=== PATIENT | female | born 1940 | race Caucasian/White ===

== ENCOUNTER 2021-12-20 13:37 | Day surgery (SDC) | payer MEDICARE, OTHER, SELFPAY ==
[2021-12-20] MEDS: TETRACAINE 0.5% OPHTH 1 DROP EYE-LEFT (12:28)
[2021-12-20] MEDS: TETRACAINE 0.5% OPHTH 1 DROP EYE-RIGHT (12:28)
[2021-12-20] MEDS: LACTATED RINGERS 1000 ML 1,000 ML 100 ML IV (12:30)
[2021-12-20 13:46] VITALS: BMI 24.8
[2021-12-20 14:06] VITALS: BP 161/74; PULSE 55; RESP 18; TEMP 36.5; O2SAT 98
[2021-12-20] MEDS: TETRACAINE 0.5% OPHTH 2 DROP EYE-BOTH (14:51)
[2021-12-20] MEDS: BUPIVACAINE 0.5 %/EPI 1:200K 30 ML INJECTION (14:53)
--- NOTE | 2021-12-20 14:53 | SUR.PREOP ---
Pt needing multiple IV starts 2 per RN and 2 per ORDER ADMINISTRATOR iv started and infusing well to right top hand
--- NOTE | 2021-12-20 15:57 | W.PM.OPTPROC ---
Procedure Note Date of procedure: 12/20/21 Will [facility] bill your pro fee for this procedure?: Yes Procedure Description: SURGEON: Gina Isidro MD PREOPERATIVE DIAGNOSIS: Dermatochalasis, bilateral upper eyelids. POSTOPERATIVE DIAGNOSIS: Dermatochalasis, bilateral upper eyelids. NAME OF OPERATION: Bilateral upper eyelid blepharoplasty. ANESTHESIA: Local monitored anesthesia care. ESTIMATED BLOOD LOSS: Less than 2 cc. COMPLICATIONS: None. IMPLANTS: None. INDICATIONS: The patient is seen today for bilateral upper eyelid blepharoplasty. The patient complains of upper eyelids interfering with vision. I reviewed the visual oates and facial photographs. Surgery was indicated for functional improvement of vision. The risks, benefits and alternatives were discussed pre-operatively. The risks included pain, infection, bleeding, poor cosmetic result, scarring, asymmetry, need for further treatment including surgery, inability to close lids, dry eyes, decreased vision, loss of vision and loss of eye. The benefits included improvement of symptoms. The alternative was observation and no surgery. All questions were answered to the patient's satisfaction, and the patient elected to proceed with the bilateral upper eyelid blepharoplasty. Informed consent was obtained. PROCEDURE: In a sitting position, the upper eyelid crease was marked with a marking pen, and the pinch technique was used to determine the amount of upper eyelid skin to be excised. A calipers was used to measure for symmetry and to confirm an appropriate amount of remaining skin. The patient was taken to the operating room. 4 cc of anesthetic was injected subcutaneously along the full extent of each upper eyelid. This anesthetic was made with 1:1 of 2% lidocaine with epinephrine and 0.5% bupivacaine. Both eyes were prepped and draped in the usual sterile ophthalmic fashion. The following was performed on both the right and left upper eyelid: A #15 blade was used to incise the skin. Bishops and Kiya scissors were used to excise the skin and orbicularis muscle. Handheld cautery was used to achieve hemostasis. The eyelids were examined for symmetry. The skin was closed with a running 6-0 nylon suture. Erythromycin ointment was applied to the wounds. The patient tolerated the procedure well. DISPOSITION: The patient was sent to the recovery room and discharged to home in stable condition. The patient was given my postoperative instructions handout. The patient was told to ice as directed. The patient will apply erythromycin ophthalmic ointment to the eyelids three times a day until the sutures are removed, then for another three days. The patient will follow up in one week for suture removal or sooner as needed. The patient was instructed to call me or go to the emergency department with any sudden change, including dramatic loss of vision, excessive bleeding, redness or discharge from the incisions, or severe pain in the eye. Surgeon: Gina Isidro MD
--- NOTE | 2021-12-20 15:58 | W.ANESCHARGE ---
Anesthesia Charges Start Date/Time Anesthesia Start Date: 12/20/21 Anesthesia Start Time: 14:52 Stop Date/Time Anesthesia Stop Date: 12/20/21 Anesthesia Stop Time: 16:00 Summary Emergency: No Extremes of Age: Over 70-CPT [id number]
[2021-12-20 16:00] VITALS: BP 139/72; PULSE 53; RESP 20; TEMP 36.3; O2SAT 98
[2021-12-20 16:20] VITALS: BP 130/68; PULSE 52; RESP 20; TEMP 36.3; O2SAT 97
== END 2021-12-20 16:30 | disposition home or self-care (01) ==
PROVIDERS: PCP Internal Medicine; Visit Provider Ophthalmology
PROC: (CPT 15823; principal; 2021-12-20 13:30)
DX: H02.834 Dermatochalasis of left upper eyelid (principal); H02.831 Dermatochalasis of right upper eyelid; H53.9 Unspecified visual disturbance
CPT/HCPCS: 15823; 00103; 99100; A9270; J3490; J7120

== ENCOUNTER 2022-02-27 09:30 | Emergency (ER) | payer MEDICARE, OTHER, SELFPAY ==
[2022-02-27] VITALS (7 sets, daily range): BP systolic 125–150; BP diastolic 59–69; PULSE 81–98; RESP 16–20; TEMP 36.2; O2SAT 89–97; BMI 24.9
--- NOTE | 2022-02-27 10:11 | CRLHL7_ITS ---
For Patients: As a result of the Cures Act, medical imaging exams and procedure reports are released immediately into your electronic medical record. You may view this report before your referring provider. If you have questions, please contact your health care provider. INDICATION: Cough; shortness of breath. COMPARISON: Two-view chest February 19, 2022. TECHNIQUE: Two-view chest. FINDINGS: Infiltrates right middle lobe; relatively new when compared to February 19, 2022. No pneumothorax or pleural effusion. IMPRESSION: Infiltrates right middle lobe. Dictated by Feroz Mo MD @ 02/27/2022 12:04:04 PM (Electronically Signed)
[2022-02-27 10:39] LABS: Basophils Percent Auto 0.1 % (0.0-3.0); Eosinophils Percent Auto 0.4 % (0.0-7.0); Hemoglobin* 14.9 gm/dL (12.0-16.0); Immature Granulocytes Pct Auto 0.3 %; Mean Corpuscular HGB Conc 32 gm/dL (32-36); Mean Corpuscular Hemoglobin 26 pg (26-34); Mean Corpuscular Volume 80 fL (80-100); Monocytes Percent Auto 6.9 % (0.0-11.0); Neutrophils Percent Auto 82.3 % (42.0-72.0); Platelet Count* 212 K/uL (140-440); RDW Coefficient of Variation % 14.5 % (11.5-15.5); Red Blood Count 5.75 m/uL (4.00-5.20); White Blood Count* 11.74 K/uL (4.50-11.00)
[2022-02-27 10:41] LABS: Slide Review Reflex No
[2022-02-27] MEDS: IPRAT-ALBUT 0.5-2.5 MG/3 ML NEB 1 NEB IH (10:41)
[2022-02-27 11:12] LABS: PCR FLU A Negative PCR FLU A (Negative); PCR FLU B Negative PCR FLU B (Negative); PCR RSV Negative PCR RSV (Negative)
[2022-02-27 11:17] LABS: SARS PCR* Negative SARS-CoV-2 (Negative)
[2022-02-27 11:19] LABS: Procalcitonin* 0.12 ng/mL (<0.50)
[2022-02-27 11:24] LABS: NT Pro B Type NatriureticPept* 175 pg/mL; Troponin I* < 0.01 ng/mL (0.01-0.04)
[2022-02-27 11:29] LABS: INR 0.91 (0.91-1.10); Partial Thromboplastin Time* 27 Seconds (23-33); Prothrombin Time 12.8 Seconds
[2022-02-27 11:32] LABS: D Dimer Quantitative* 0.65 ug/ml (0.00-0.50)
[2022-02-27] MEDS: METHYLPREDNISOLONE SOD SUCC 62.5 MG/ML (125) 125 MG IVP (11:39)
[2022-02-27] MEDS: ALBUTEROL SULFATE 2.5 MG/3 ML VIAL.NEB NEB (11:39)
--- NOTE | 2022-02-27 11:52 | ED_ITS ---
HPI - SOB/Dyspnea General Date Seen: 02/27/22 Chief Complaint: Shortness of Breath/Dyspnea Stated Complaint: Shortness of breath, congestion Time Seen by Provider: 02/27/22 09:42 Source: patient Mode of arrival: ambulatory Limitations: no limitations History of Present Illness HPI Narrative: Patient is a 81-year-old female brought in by her of 59 years, for history of cough and shortness of breath, she has been fighting this now for approximately 2 and half weeks, she is not on chronic oxygen. She describes a cough, worse when she lays on her back better when she sits up, she has been using her inhaled steroids along with her meter dose inhaler twice a day. She notes that she has had no fevers or chills, was seen in urgent care approximately a week and half ago, he finished up a course of prednisone on Saturday. [place] better on the prednisone, but her shortness of breath is come back since then. She notes that she is eating and drinking otherwise normally, has no real history of heart disease in the past although at 1 point she was told she may have AFib. Has been taking any other chvv-psq-rrqszet medications. MD elicited complaint: shortness of breath Pertinent past history: COPD and asthma Context: recent illness Timing: constant Severity: moderate Exacerbating factors: lying flat Relieving factors: bronchodilators and upright position Known history of: asthma Associated symptoms: denies other symptoms Treatment prior to arrival: none Related Data Home oxygen amount: none Home Medications Medication Instructions Recorded Confirmed aspirin 81 mg chewable tablet 81 mg PO DAILY 12/19/21 02/19/22 albuterol sulfate 90 mcg/actuation inhalation 12/20/21 02/19/22 aerosol inhaler losartan 50 mg tablet mg 12/20/21 02/19/22 trazodone 50 mg tablet mg 12/20/21 02/19/22 Previous Rx's Medication Instructions Recorded metoprolol tartrate 25 mg tablet 25 mg PO BID #60 tabs 01/10/22 atorvastatin 40 mg tablet 40 mg PO QDAY #30 tabs 01/12/22 omeprazole 20 mg capsule,delayed 20 mg PO QAM #30 caps 02/05/22 release prednisone 20 mg tablet 20 mg PO BID #10 tabs 02/19/22 cefuroxime axetil 500 mg tablet 500 mg PO BID 20 days #40 tabs 02/27/22 Allergies Allergy/AdvReac Type Severity Reaction Status Date / Time house dust Allergy Mild Verified 02/19/22 16:56 Review of Systems Status of ROS: Reports: 10 or more systems reviewed and unremarkable except as noted in History and below [facility] Medical History Cholecystectomy planned Cough Wheeze Family History Father Stroke Social History Smoking Status: Never smoker Do you use any of these nicotine containing products: None How often do you have a drink containing alcohol: monthly or less Alcohol type: wine How many standard drinks containing alcohol do you have on a typical day: 1 or 2 How often do you have six or more drinks on one occasion: Never AUDIT-C Alcohol total score: 1 Non-prescribed substance use: denies use Caffeine: Yes Are you using contraception or practicing any form of control: No service: No Exam Narrative: Exam Narrative: Patient is peaking normally, problem with slurring words, oriented x3. Head eyes ears nose and throat exam show equal pupils, no scleral icterus, extraocular muscles are normal, no facial droop, speech is normal, trachea normal and midline. Thyroid normal midline palpable not enlarged. Chest shows symmetrical rise bilaterally, normal auscultation with occasional wheezing, no increased work of breathing, no overt bruising or lesions seen, no tenderness is noted on auscultation. Heart sounds normal with no S3-S4 no murmurs clicks or gallops. Abdomen shows no obvious masses or hepatosplenomegaly, no organomegaly, bowel sounds are normal in all quadrants. No tenderness is noted also in all quadrants. Upper and lower extremities show normal power, normal range of motion, pulses are normal, sensations normal, fine motor movements are normal, pelvis is stable to rocking. Cervical spine shows normal range of motion, and palpably not tender. Thoracic spine shows normal range of motion, and palpably not tender, lumbar spine shows no tenderness to palpation percussion and is otherwise normal range of motion. Skin shows no rashes, petechiae or eccymosis. Const: Vital Signs, click to edit/add: Vital Signs - 24 hr 02/27/22 09:46 02/27/22 11:00 02/27/22 11:30 Temperature 97.2 F L Pulse Rate [Pulse Oximeter] 93 98 83 Respiratory Rate 20 16 16 Blood Pressure [Ri ght Upper Arm] 139/68 150/67 H 149/69 H Pulse Oximetry 89 92 92 Oxygen Delivery Me thod Room Air Room Air Room Air 02/27/22 12:59 Temperature Pulse Rate [Pulse Oximeter] Respiratory Rate Blood Pressure [Ri ght Upper Arm] Pulse Oximetry 91 Oxygen Delivery Me thod Room Air Documenting provider has reviewed patient's vital signs: yes Course Course Hospital Course: Went back in and saw the patient she is hovering around 92%, we then walked her around the emergency room, with a sat monitor on and she never dipped below 91%. X-ray did by Radiology showed that there was maybe some right middle lobe infiltrate. her labs all look reasonable. I do think this is asthma exacerbation, I would like to put her on a longer tapering regime of prednisone, give her some Zithromax and also Ceftin and cover her for community-acquired pneumonia., she can use her inhaler, and then we will get her to purchase oxygen saturation monitor. I did offer admission, but with the caveats that we will be sitting in the ER for the next 6-8 hours, and they chose to try at home. He can always come back if worsening, Vital Signs Vital signs: Initial Vital Signs Temperature 97.2 F L 02/27/22 09:46 Temperature Source Temporal Artery Scan 02/27/22 09:46 Pulse Rate 93 02/27/22 09:46 Respiratory Rate 20 02/27/22 09:46 Blood Pressure 139/68 02/27/22 09:46 Blood Pressure Mean 91 02/27/22 09:46 Blood Pressure Position Sitting 02/27/22 09:46 Pulse Oximetry 89 02/27/22 09:46 Oxygen Delivery Method 02/27/22 09:46 Vital Signs Temperature 97.2 F L 02/27/22 09:46 Pulse Rate 93 02/27/22 09:46 Respiratory Rate 20 02/27/22 09:46 Blood Pressure 139/68 02/27/22 09:46 Pulse Oximetry 89 02/27/22 09:46 Oxygen Delivery Method 02/27/22 09:46 Temperature 97.2 F L 02/27/22 09:46 Pulse Rate 83 02/27/22 11:30 Respiratory Rate 16 02/27/22 11:30 Blood Pressure 149/69 H 02/27/22 11:30 Pulse Oximetry 91 02/27/22 12:59 Oxygen Delivery Method 02/27/22 12:59 MDM - SOB/Dyspnea MDM Narrative Medical decision making narrative: Life-threatening differential diagnosis includes occluded COPD exacerbation, pulmonary edema, acute coronary syndromes, pulmonary embolism, pneumonia, and pneumothorax. Other differential diagnosis considerations include asthma, bronchitis as well as other etiologies Differential Diagnosis Differential diagnosis: Likely acute exacerbation of chronic obstructive airways disease, congestive heart failure, community acquired pneumonia, asthma with exacerbation and pulmonary embolism Medical Records Attestation: I reviewed the patient's medical records. Lab Data Attestation: I reviewed the patient's lab results. Labs: Lab Results 02/27/22 02/27/22 02/27/22 Range/Units 09:59 10:30 10:30 WBC 11.74 H (4.50-11.00) K/uL RBC 5.75 H (4.00-5.20) m/uL Hgb 14.9 (12.0-16.0) gm/dL Hct 46.0 (33.0-51.0) % MCV 80 (80-100) fL MCH 26 (26-34) pg MCHC 32 (32-36) gm/dL RDW Coeff of Lee Ann 14.5 (11.5-15.5) % Plt Count 212 (140-440) K/uL Neut % (Auto) 82.3 H (42.0-72.0) % Lymph % (Auto) 10.0 L (20-44) % [place] % (Auto) 6.9 (0.0-11.0) % Eos % (Auto) 0.4 (0.0-7.0) % Baso % (Auto) 0.1 (0.0-3.0) % Neut # (Auto) 9.70 H (1.7-7.0) K/uL Lymph # (Auto) 1.20 (0.90-2.90) K/uL [place] # (Auto) 0.80 (0.00-0.90) K/UL Eos # (Auto) 0.00 (0.00-0.50) K/uL Baso # (Auto) 0.00 (0.00-0.30) K/uL Abs Immat Gran (auto) 0.00 (0.00-0.30) K/uL Imm/Tot Granulo (auto) 0.3 % INR 0.91 (0.91-1.10) APTT 27 (23-33) Seconds D-Dimer Quant (PE/DVT) 0.65 H (0.00-0.50) ug/ml Troponin I (0.01-0.04) ng/mL NT-Pro-B Natriuret Pep pg/mL Procalcitonin (<0.50) ng/mL SARS-CoV-2 (PCR) Negative SARS-CoV-2 (Negative) Influenza Type A (PCR) Negative PCR FLU A (Negative) Influenza Type B (PCR) Negative PCR FLU B (Negative) RSV (PCR) Negative PCR RSV (Negative) 02/27/22 Range/Units 10:30 WBC (4.50-11.00) K/uL RBC (4.00-5.20) m/uL Hgb (12.0-16.0) gm/dL Hct (33.0-51.0) % MCV (80-100) fL MCH (26-34) pg MCHC (32-36) gm/dL RDW Coeff of Lee Ann (11.5-15.5) % Plt Count (140-440) K/uL Neut % (Auto) (42.0-72.0) % Lymph % (Auto) (20-44) % [place] % (Auto) (0.0-11.0) % Eos % (Auto) (0.0-7.0) % Baso % (Auto) (0.0-3.0) % Neut # (Auto) (1.7-7.0) K/uL Lymph # (Auto) (0.90-2.90) K/uL [place] # (Auto) (0.00-0.90) K/UL Eos # (Auto) (0.00-0.50) K/uL Baso # (Auto) (0.00-0.30) K/uL Abs Immat Gran (auto) (0.00-0.30) K/uL Imm/Tot Granulo (auto) % INR (0.91-1.10) APTT (23-33) Seconds D-Dimer Quant (PE/DVT) (0.00-0.50) ug/ml Troponin I < 0.01 L (0.01-0.04) ng/mL NT-Pro-B Natriuret Pep 175 pg/mL Procalcitonin 0.12 (<0.50) ng/mL SARS-CoV-2 (PCR) (Negative) Influenza Type A (PCR) (Negative) Influenza Type B (PCR) (Negative) RSV (PCR) (Negative) Imaging Data Chest x-ray: Attestation: I have reviewed the pertinent imaging results. My impression: Review of the chest x-ray is done when compared to old chest x-ray from early February, little bit more fullness along the right heart border. Await radiological over read Radiologist's impression: Patient: LUZ WADSWORTH Facility: [facility] Site . Site : [id number] Study: XRay Chest 2 VIEWS-02/27/2022 11:32:02 AM Ordering Physician: Ximena Jarvis Final Report: INDICATION: Cough; shortness of breath. COMPARISON: Two-view chest February 19, 2022. TECHNIQUE: Two-view chest. FINDINGS: Infiltrates right middle lobe; relatively new when compared to February 19, 2022. No pneumothorax or pleural effusion. IMPRESSION: Infiltrates right middle lobe. Dictated by Feroz Mo MD @ 02/27/2022 12:04:04 PM (Electronic Signature) ECG Data Attestation: I personally reviewed and interpreted this ECG as follows: ECG interpretation date: 02/27/22 Interpretation: I remains EKG looks like normal sinus rhythm with a right bundle branch block, no acute ST wave changes are noted Discharge Plan Discharge Clinical Impression: Asthma exacerbation in COPD Patient Disposition: Home w/ Parent or Adult Condition: Stable Instructions: Asthma (ED), Chronic Bronchitis (DC) Additional Instructions: So, this is however going to do this. Your going to go home, take the tapering dose of steroids, add in some Zithromax, use your inhalers regularly every 4 hours for the next 2 days and then as needed. I do recommend follow-up with your regular physician in the next 2-3 days for recheck, also buying an oxygen saturation monitor at the pharmacy, to have to monitor. Her saturations get consistently below 90% especially when walking then brought back to the emerge ncy room. Here you did not dip below 91% walking. Follow-up with primary care in the next 3-4 days, Prescriptions: New cefuroxime axetil 500 mg tablet 500 mg PO BID 20 Days Qty: 40 0RF No Action prednisone 20 mg tablet 20 mg PO BID Qty: 10 0RF aspirin 81 mg tablet,chewable 81 mg PO DAILY losartan 50 mg tablet trazodone 50 mg tablet Label Comments: TAKE 1 TO 2 TABLETS BY MOUTH AT BEDTIME albuterol sulfate 90 mcg/actuation HFA aerosol inhaler INHALATION Label Comments: INHALE 1-2 PUFFS EVERY 4 HOURS IF NEEDED FOR SHORTNESS OF BREATH 1ST CHOICE OR WHEEZING 1ST CHOICE. metoprolol tartrate 25 mg tablet 25 mg PO BID Qty: 60 0RF atorvastatin 40 mg tablet 40 mg PO QDAY Qty: 30 0RF omeprazole 20 mg capsule,delayed release(DR/EC) 20 mg PO QAM Qty: 30 0RF Follow Up/Referrals: SIM LEHMAN DO [Primary Care Provider] - Stand Alone Forms: [employer] Info Instructions
--- NOTE | 2022-02-27 13:00 | ED.NURSE ---
Patient ambulated around unit on RA. Sats stayed around 91%. MD notified.
--- NOTE | 2022-02-27 13:21 | ED.NURSE ---
Patient was discharged. Instymed prescription for z-pack and prednisone supplied and another prescription was sent into [facility] for another antibiotic. PIV taken out and catheter intact. All questions answered. Left via ambulatory.
== END 2022-02-27 13:22 | disposition home or self-care (01) ==
PROVIDERS: Emergency Provider Family Medicine; PCP Student in an Organized Health Care Education/Training Program
DX: J44.1 Chronic obstructive pulmonary disease with (acute) exacerbation (principal); J44.9 Chronic obstructive pulmonary disease, unspecified
CPT/HCPCS: 36415; 71046; 83880; 84145; 84484; 85025; 85379; 85610; 85730; 87502; 87634; 87635; 93005; 94640; 96374; 99284; J2930

== ENCOUNTER 2022-06-19 13:46 | Outpatient (CLI) | payer MEDICARE, OTHER, SELFPAY ==
--- NOTE | 2022-06-19 14:00 | CRLHL7_ITS ---
For Patients: As a result of the Cures Act, medical imaging exams and procedure reports are released immediately into your electronic medical record. You may view this report before your referring provider. If you have questions, please contact your health care provider. BILATERAL SCREENING MAMMOGRAM WITH COMPUTER-AIDED DETECTION AND TOMOSYNTHESIS TECHNIQUE: CC and MLO views were obtained. These mammographic images have been obtained using full-field digital technique. These mammographic images were interpreted with the benefit of computer-aided detection. Breast Tomosynthesis was used in this interpretation. COMPARISON FILM: 02/21/21, 01/21/20, 03/31/18. FINDINGS: The breasts are almost entirely fatty. IMPRESSION: There is no radiographic evidence for malignancy. ASSESSMENT: BI-RADS Category 1: Negative RECOMMENDATION: Routine screening mammogram in 1 year. A lay language report of this examination will be provided to the patient. Anthony Ibarra M.D. Diagnostic Radiologist [email or web address] Transcribed: 1:02 p.m. PT/Dictated by: Anthony Ibarra MD @ 06/20/2022 11:27:00 AM (Electronically Signed)
== END 2022-06-19 13:47 | disposition home or self-care (01) ==
LOC: MAMMO 13:47
PROVIDERS: PCP Student in an Organized Health Care Education/Training Program; Visit Provider Family Medicine
DX: Z12.31 Encounter for screening mammogram for malignant neoplasm of breast (principal)
CPT/HCPCS: 77063; 77067

== ENCOUNTER 2022-09-05 06:14 | Day surgery (SDC) | payer MEDICARE, OTHER, SELFPAY ==
[2022-09-05] MEDS: KETOROLAC OPHTH 0.5% 1 DROP EYE-RIGHT ×3 (06:30→06:40)
[2022-09-05] MEDS: TETRACAINE 0.5% OPHTH 1 DROP EYE-RIGHT ×2 (06:30→06:35)
[2022-09-05 06:32] VITALS: BMI 23.6
[2022-09-05 06:36] VITALS: BP 182/67; PULSE 50; RESP 16; TEMP 36.2; O2SAT 97
[2022-09-05] MEDS: SODIUM CHLORIDE 0.9 % (FLUSH) 10 ML SYRINGE IVF (06:45)
--- NOTE | 2022-09-05 07:07 | SUR.PREOP ---
The eye drops brought by the patient (Ketorolac and Prednisolone) are examined and I have determined they are labeled by the patient's pharmacy for this patient as prescribed by the surgeon. The bottles are intact, recently obtained and appear to be correct.
[2022-09-05] MEDS: TETRACAINE 0.5% OPHTH 2 DROP EYE-RIGHT (07:09)
[2022-09-05] MEDS: BALANCED SALT IRRIG SOLN 15 ML EYE-RIGHT (07:11)
--- NOTE | 2022-09-05 07:17 | P.ANES_ITS ---
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
[2022-09-05 08:01] VITALS: BP 143/74; PULSE 49; RESP 16; TEMP 36.1; O2SAT 94
--- NOTE | 2022-09-05 08:47 | P.OPTPRC_ITS ---
Procedure Note Date of procedure: 09/05/22 Will [facility] bill your pro fee for this procedure?: Yes Procedure Description: SURGEON: Gina Isidro MD PREOPERATIVE DIAGNOSIS: 1. Nuclear sclerotic cataract, right eye. 2. Miosis, right eye. POSTOPERATIVE DIAGNOSIS: 1. Nuclear sclerotic cataract, right eye. 2. Miosis, right eye. NAME OF OPERATION: Phacoemulsification of cataract with posterior chamber intraocular lens implantation in the right eye with pupilloplasty. ANESTHESIA: Topical. ESTIMATED BLOOD LOSS: Less than 2 cc. COMPLICATIONS: None. PATHOLOGY SPECIMEN: None. INDICATIONS: See consult note for details. The risks, benefits and alternatives of the procedure were explained to the patient, who elected to proceed and signed informed consent to do so. PROCEDURE: The patient was brought to the pre-holding area where the right eye was identified as the operative eye. I placed my initials above this eye. The patient received eye drops consisting of 0.5% tetracaine, 1% tropicamide, 10% phenylephrine, and 0.5% ketorolac. The patient was then brought to the operating room where the right eye was again identified as the operative eye. The eye was prepped with Betadine and draped in the usual sterile ophthalmic fashion. A #15 super-sharp blade was used to create a paracentesis site. 1% non-preserved intracameral lidocaine was injected into the anterior chamber. Endocoat was injected into the anterior chamber. A 2.4 mm keratome was used to create a three-plane self-sealing incision 1 mm anterior to the temporal limbus. A #15 super-sharp blade was used to create four additional paracentesis sites. Four Grieshaber iris hooks were placed in order to stretch the iris. A cystotome was used to create an anterior capsular leaflet. The Utrata forceps were used to extend this to form a continuous curvilinear capsulorrhexis. Hydrodissection was performed. The cataract was removed with phacoemulsification using the [id number] technique. The irrigation and aspiration tip was used to remove the remaining cortex. Healon was injected into the capsular bag. An CHRISTINA ZCB00 intraocular lens of 21.5 diopters was injected into the capsular bag. The four Grieshaber iris hooks were removed. The irrigation and aspiration tip was used to remove the remaining viscoelastic. Miostat was injected into the anterior chamber. Balanced salt solution on a cannula was used to hydrate the wound, and the wound was found to be watertight. The pupil was noted to be round. DISPOSITION: The patient was taken to the recovery room and discharged to home in stable condition. The patient was instructed to call me or go to the emergency department with any sudden change, including dramatic loss of vision, severe pain in the eye or eyebrow region, nausea, or vomiting. The patient will follow up in the clinic tomorrow morning.
== END 2022-09-05 08:27 | disposition home or self-care (01) ==
PROVIDERS: PCP Student in an Organized Health Care Education/Training Program; Visit Provider Ophthalmology
PROC: (CPT 66982; principal; 2022-09-05 06:15)
DX: H25.11 Age-related nuclear cataract, right eye (principal); H57.03 Miosis
CPT/HCPCS: 66982; 00142; 99100; A9270; J2250; J2405; J3010; V2632

== ENCOUNTER 2022-09-19 06:11 | Day surgery (SDC) | payer MEDICARE, OTHER, SELFPAY ==
[2022-09-19] MEDS: TETRACAINE 0.5% OPHTH 1 DROP EYE-LEFT ×2 (06:15→06:20)
[2022-09-19] MEDS: KETOROLAC OPHTH 0.5% 1 DROP EYE-LEFT ×3 (06:15→06:25)
[2022-09-19 06:40] VITALS: BP 175/80; PULSE 55; RESP 16; TEMP 36.7; O2SAT 98; BMI 23.6
--- NOTE | 2022-09-19 06:52 | SUR.PREOP ---
The eye drops brought by the patient (Ketorolac, oflaxacon, and Prednisolone) are examined and I have determined they are labeled by the patient's pharmacy for this patient as prescribed by the surgeon. The bottles are intact, recently obtained and appear to be correct.
[2022-09-19] MEDS: SODIUM CHLORIDE 0.9 % (FLUSH) 10 ML SYRINGE IVF (06:56)
[2022-09-19] MEDS: TETRACAINE 0.5% OPHTH 2 DROP EYE-LEFT (07:17)
[2022-09-19] MEDS: BALANCED SALT IRRIG SOLN 15 ML EYE-LEFT (07:22)
--- NOTE | 2022-09-19 07:25 | W.ANESCHARGE ---
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
[2022-09-19 07:55] VITALS: BP 172/88; PULSE 55; RESP 14; TEMP 36.8; O2SAT 98
--- NOTE | 2022-09-19 08:41 | W.PM.OPTPROC ---
Procedure Note Date of procedure: 09/19/22 Will [facility] bill your pro fee for this procedure?: Yes Procedure Description: SURGEON: Gina Isidro MD PREOPERATIVE DIAGNOSIS: 1. Nuclear sclerotic cataract, left eye. 2. Miosis, left eye. POSTOPERATIVE DIAGNOSIS: 1. Nuclear sclerotic cataract, left eye. 2. Miosis, left eye. NAME OF OPERATION: Phacoemulsification of cataract with posterior chamber intraocular lens implantation in the left eye with pupilloplasty. ANESTHESIA: Topical. ESTIMATED BLOOD LOSS: Less than 2 cc. COMPLICATIONS: None. PATHOLOGY SPECIMEN: None. INDICATIONS: See consult note for details. The risks, benefits and alternatives of the procedure were explained to the patient, who elected to proceed and signed informed consent to do so. PROCEDURE: The patient was brought to the pre-holding area where the left eye was identified as the operative eye. I placed my initials above this eye. The patient received eye drops consisting of 0.5% tetracaine, 1% tropicamide, 10% phenylephrine, and 0.5% ketorolac. The patient was then brought to the operating room where the left eye was again identified as the operative eye. The eye was prepped with Betadine and draped in the usual sterile ophthalmic fashion. A #15 super-sharp blade was used to create a paracentesis site. 1% non-preserved intracameral lidocaine was injected into the anterior chamber. Endocoat was injected into the anterior chamber. A 2.4 mm keratome was used to create a three-plane self-sealing incision 1 mm anterior to the temporal limbus. A #15 super-sharp blade was used to create four additional paracentesis sites. Four Grieshaber iris hooks were placed in order to stretch the iris. A cystotome was used to create an anterior capsular leaflet. The Utrata forceps were used to extend this to form a continuous curvilinear capsulorrhexis. Hydrodissection was performed. The cataract was removed with phacoemulsification using the [id number] technique. The irrigation and aspiration tip was used to remove the remaining cortex. Healon was injected into the capsular bag. An CHRISTINA ZCB00 intraocular lens of 21.5 diopters was injected into the capsular bag. The four Grieshaber iris hooks were removed. The irrigation and aspiration tip was used to remove the remaining viscoelastic. Miostat was injected into the anterior chamber. Balanced salt solution on a cannula was used to hydrate the wound, and the wound was found to be watertight. The pupil was noted to be round. DISPOSITION: The patient was taken to the recovery room and discharged to home in stable condition. The patient was instructed to call me or go to the emergency department with any sudden change, including dramatic loss of vision, severe pain in the eye or eyebrow region, nausea, or vomiting. The patient will follow up in the clinic tomorrow morning.
== END 2022-09-19 08:29 | disposition home or self-care (01) ==
PROVIDERS: PCP Student in an Organized Health Care Education/Training Program; Visit Provider Ophthalmology
PROC: (CPT 66982; principal; 2022-09-19 06:15)
DX: H25.12 Age-related nuclear cataract, left eye (principal); H57.03 Miosis
CPT/HCPCS: 66982; 00142; 99100; A9270; J2250; J2405; J3010; V2632

== ENCOUNTER 2023-12-13 15:53 | Emergency (ER) | payer MEDICARE, OTHER, SELFPAY ==
[2023-12-13 16:20] VITALS: BP 157/76; PULSE 57; RESP 18; TEMP 36.3; O2SAT 97; BMI 23.4
--- NOTE | 2023-12-13 18:06 | ED.GENADULT ---
HPI - General Adult General Chief complaint: Hypertension Stated complaint: BP concerns Time Seen by Provider: 12/13/23 17:56 Source: patient Mode of arrival: ambulatory Limitations: no limitations History of Present Illness HPI narrative: Lashanda is an 83-year-old female who was sent to the emergency department from the urgent care for elevated blood pressures. Patient states she woke up this morning in feel great, she therefore checked her blood pressure when it was 165/100. She call the clinic and was told to go to the urgent care. Upon arrival to the urgent care she was told to come to the emergency room. She states that she has a mild headache which is not new for her. She also complains of mild epigastric discomfort which is also not new for her because she has GERD. She denies chest pain or new shortness of breath. She denies inability to do her daily activities. She states that her blood pressure did go down after lunch and she generally felt better but it was still elevated in the 150s. Patient is on losartan and metoprolol for blood pressure control. She checked her blood pressure today in yesterday, has not been checking it aside from that. She is unsure whether not it has been high regularly or not. She does complain of white coat hypertension and states that her blood pressure is always high in the doctor's office but is often times normal in the 130's systolic at home. She denies altered mental status, confusion, focal neurologic deficits, changes in her vision or hearing. No changes in her speech. Related Data Home Medications ?Medication ?Instructions ?Recorded ?Confirmed aspirin 81 mg chewable tablet 81 mg PO DAILY 12/19/21 09/19/22 albuterol sulfate 90 mcg/actuation inhalation 12/20/21 02/19/22 aerosol inhaler losartan 50 mg tablet 50 mg PO DAILY 12/20/21 12/13/23 trazodone 50 mg tablet mg 12/20/21 02/19/22 Previous Rx's ?Medication ?Instructions ?Recorded metoprolol tartrate 25 mg tablet 25 mg PO BID #60 tabs 01/10/22 atorvastatin 40 mg tablet 40 mg PO QDAY #30 tabs 01/12/22 omeprazole 20 mg capsule,delayed 20 mg PO QAM #30 caps 02/05/22 release prednisone 20 mg tablet 20 mg PO BID #10 tabs 02/19/22 Allergies Allergy/AdvReac Type Severity Reaction Status Date / Time house dust Allergy Mild Verified 09/19/22 06:28 Review of Systems Status of ROS: Reports: 10 or more systems reviewed and unremarkable except as noted in History and below [facility] Medical History Wheeze ?R06.2 - Wheezing (ICD-10) Cough ?R05.9 - Cough, unspecified (ICD-10) Cholecystectomy planned Family History Father Stroke Social History Smoking Status: Never smoker Do you use any of these nicotine containing products: None How often do you have a drink containing alcohol: monthly or less Alcohol type: hard liquor How many standard drinks containing alcohol do you have on a typical day: 1 or 2 How often do you have six or more drinks on one occasion: Never AUDIT-C Alcohol total score: 1 Non-prescribed substance use: denies use Caffeine: Yes (COFFEE) Are you using contraception or practicing any form of control: No service: No Exam Narrative: Exam Narrative: Well-nourished well-developed patient in no acute distress. Alert and oriented. Answers questions appropriately. Mood and affect are appropriate. Thoughts are goal oriented and rational. No tangential or magical thinking noted. Patient speaks in full sentences without needing to catch her breath. Well groomed. HEENT: Normocephalic atraumatic. Pupils are equally round reactive to light. Extraocular muscles are intact. Conjunctivae are moist without any icterus noted. Moist mucous membranes. Posterior pharynx is normal. Neck is soft . Cardiovascular: Heart is regular rate and rhythm S1 and S2 are present without any murmurs. Lungs: Clear to auscultation bilaterally no wheezes rhonchi or rales are appreciated. Patient takes deep breaths without any discomfort. Abdomen: Soft and nontender . Extremities: Bilateral lower extremities are without edema. Skin: Well perfused. Strength is 5/5 of the upper and lower extremities. There is no nystagmus either horizontally or vertically. Gait is normal. Const: Vital Signs, click to edit/add: Vital Signs - 24 hr 12/13/23 16:20 Temperature 97.3 F L Pulse Rate [Pulse Oximeter] 57 L Respiratory Rate 18 Blood Pressure [Ri ght Upper Arm] 157/76 H Pulse Oximetry 97 Oxygen Delivery Me thod Room Air Course Vital Signs Vital signs: Initial Vital Signs Temperature 97.3 F L 12/13/23 16:20 Temperature Source Temporal Artery Scan 12/13/23 16:20 Pulse Rate 57 L 12/13/23 16:20 Pulse Rhythm Regular 12/13/23 16:20 Respiratory Rate 18 12/13/23 16:20 Blood Pressure 157/76 H 12/13/23 16:20 Blood Pressure Mean 103 12/13/23 16:20 Blood Pressure Position Sitting 12/13/23 16:20 Pulse Oximetry 97 12/13/23 16:20 Oxygen Delivery Method Room Air 12/13/23 16:20 Vital Signs Temperature 97.3 F L 12/13/23 16:20 Pulse Rate 57 L 12/13/23 16:20 Respiratory Rate 18 12/13/23 16:20 Blood Pressure 157/76 H 12/13/23 16:20 Pulse Oximetry 97 12/13/23 16:20 Oxygen Delivery Method Room Air 12/13/23 16:20 Temperature 97.3 F L 12/13/23 16:20 Pulse Rate 57 L 12/13/23 16:20 Respiratory Rate 18 12/13/23 16:20 Blood Pressure 157/76 H 12/13/23 16:20 Pulse Oximetry 97 12/13/23 16:20 Oxygen Delivery Method Room Air 12/13/23 16:20 Medical Decision Making MDM Narrative Medical decision making narrative: 83-year-old female with elevated blood pressures. We discussed this is not an emergency and she should continue to monitor once a day different times during the day to see if this continuously elevated. I recommend she follow up with her primary care provider in approximately 1 week to discuss the results of her blood pressure measurements and discuss whether not she needs changes in her medication. Discharge Plan Discharge Clinical Impression: Essential hypertension Patient Disposition: Home, Self-Care Condition: Stable Additional Instructions: Recommend you check your blood pressure once per day, and different times during the day for the next week. Bring those recorded readings to your appointment with your primary care provider in 1-2 weeks to discuss whether not you need to make any changes to your medications. Return to the ER if you develop chest pain, difficulty speaking, weakness in any extremity. Prescriptions: No Action prednisone 20 mg tablet 20 mg PO BID Qty: 10 0RF aspirin 81 mg tablet,chewable 81 mg PO DAILY losartan 50 mg tablet 50 mg PO DAILY trazodone 50 mg tablet Patient Comments: TAKE 1 TO 2 TABLETS BY MOUTH AT BEDTIME albuterol sulfate 90 mcg/actuation HFA aerosol inhaler INHALATION Patient Comments: INHALE 1-2 PUFFS EVERY 4 HOURS IF NEEDED FOR SHORTNESS OF BREATH 1ST CHOICE OR WHEEZING 1ST CHOICE. metoprolol tartrate 25 mg tablet 25 mg PO BID Qty: 60 0RF atorvastatin 40 mg tablet 40 mg PO QDAY Qty: 30 0RF omeprazole 20 mg capsule,delayed release(DR/EC) 20 mg PO QAM Qty: 30 0RF Follow Up/Referrals: SIM LEHMAN DO [Primary Care Provider] - Stand Alone [facility] Info Inst[facility]
== END 2023-12-13 18:26 | disposition home or self-care (01) ==
LOC: ED 18:17
PROVIDERS: Emergency Provider Family Medicine; PCP Student in an Organized Health Care Education/Training Program
DX: I10 Essential (primary) hypertension (principal)
CPT/HCPCS: 99283; 99284

== ENCOUNTER 2025-01-04 15:34 | Outpatient (CLI) | payer MEDICARE, OTHER, SELFPAY | END 2025-01-04 15:35 | disposition home or self-care (01) | LOC: NFLDREF 01-07 19:46 | PROVIDERS: PCP Student in an Organized Health Care Education/Training Program; Referring Provider Student in an Organized Health Care Education/Training Program; Visit Provider Physician Assistant Surgical | DX: N30.01 Acute cystitis with hematuria (principal) | CPT/HCPCS: 87086 ==

== ENCOUNTER 2025-02-22 11:36 | Emergency (ER) | payer MEDICARE, OTHER, SELFPAY ==
[2025-02-22 12:42] VITALS: BP 152/83; PULSE 81; RESP 20; TEMP 36.4; BMI 22.3
--- NOTE | 2025-02-22 13:31 | ED.GENADULT ---
HPI - General Adult General Date Seen: 02/22/25 Chief complaint: Arrhythmia/Palpitations Stated complaint: Tachycardia Time Seen by Provider: 02/22/25 13:07 History of Present Illness HPI narrative: 84 Year old female with history of hypertension, hyperlipidemia, GERD, PSVT. she also has history of atrial fibrillation and had a pacemaker placed in August. Since then she has had trouble with paroxysmal AFib and has been managed on sotalol. Recently, her director of laboratory operations had her decrease and then discontinue the sotalol because she was having some generalized weakness. Apparently her director of laboratory operations thought that the weakness might be a side effect of that medication. She stopped the sotalol a week or 2 ago and started on diltiazem in its place last week. she presents to the ER this afternoon For evaluation after an episode of palpitations that occurred this morning around 10:00 a.m. that lasted for several minutes. it sounds like it happened shortly after she got out of bed around 10 15 and lasted for a few minutes. While she was having the episode she felt her heart racing and pounding. She used a home pulse oximeter to measure her heart rate.She had heart racing with heart rate elevated at 160. Her was with her and encouraged to sit down and rest because he noticed that her anxiety was superimposed on the palpitations. It stopped within a couple of minutes. Since then she has been physically feeling fine except for she has been feeling a little shaky. She is not having any chest pain. No shortness of breath. No fever. No swelling in her legs. Per cardiology notes from 01/12/25 84 y.o. year old female with a history of paroxysmal SVT, hypertension, hyperlipidemia, sleep apnea, and anxiety. ?She was seen by Dr. White in [place] - Consult on 07/21/2024 and EP study with possible SVT ablation was recommended. ? 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 Ablation was unable to be completed due to recurrent PAF with atrial pacing. She underwent DCCV x 3 during the procedure with ERAF with slow ventricular rates. The case was terminated due to recurrent AF and worsening IA interval and decision was made to proceed with pacemaker implantation. On 09/02/2024, she underwent dual-chamber pacemaker implantation with Dr. Warner. Sotalol 80 mg BID was started post-device placement. ? Today, Ms. Iraheta tells me that she hasn't had any bad attacks of tachycardia, and that is a good thing. However, on sotalol, she tires very easily and is a little short of breath with stairs, inclines, etc. She denies any chest pain. She is tolerating Eliquis, but notes some minor bruising. Her has been reading up on [facility] Related Data Home Medications ?Medication ?Instructions ?Recorded ?Confirmed albuterol sulfate 90 mcg/actuation inhalation 12/20/21 01/04/25 aerosol inhaler losartan 50 mg tablet 50 mg PO DAILY 12/20/21 02/22/25 trazodone 50 mg tablet mg 12/20/21 01/04/25 amlodipine 2.5 mg tablet 2.5 mg PO QDAY 01/04/25 02/22/25 apixaban 5 mg tablet (Eliquis) 5 mg PO BID 01/04/25 02/22/25 omega-3 fatty acids 1,000 mg 2,000 mg PO BID 01/04/25 02/22/25 capsule sotalol 80 mg tablet 80 mg PO BID 01/04/25 01/04/25 diltiazem HCl 120 mg 120 mg PO DAILY 02/22/25 02/22/25 capsule,extended release 24 hr Previous Rx's ?Medication ?Instructions ?Recorded atorvastatin 40 mg tablet 40 mg PO QDAY #30 tabs 01/12/22 omeprazole 20 mg capsule,delayed 20 mg PO QAM #30 caps 02/05/22 release Allergies Allergy/AdvReac Type Severity Reaction Status Date / Time house dust Allergy Mild Verified 01/04/25 15:[address] [facility] Medical History Wheeze ?R06.2 - Wheezing (ICD-10) Cough ?R05.9 - Cough, unspecified (ICD-10) Cholecystectomy planned Family History Father Stroke Social History Smoking Status: Never smoker Do you use any of these nicotine containing products: None How often do you have a drink containing alcohol: monthly or less Alcohol type: hard liquor How many standard drinks containing alcohol do you have on a typical day: 1 or 2 How often do you have six or more drinks on one occasion: Never AUDIT-C Alcohol total score: 1 Non-prescribed substance use: denies use Caffeine: Yes (COFFEE) Are you using contraception or practicing any form of control: No service: No Exam Narrative: Exam Narrative: Constitutional: Appears well-developed and well-nourished. Alert. Conversant. Non toxic. HENT: Head: Atraumatic. Nose: Nose normal. Mouth/Throat: Oral mucosa is clear and moist. no trismus. Pharynx normal. Tonsils symmetric. No tonsillar enlargement, erythema, or exudate. Eyes: Conjunctivae normal. EOM normal. Pupils equal, round, and reactive to light. No scleral icterus. Neck: Normal range of motion. Neck supple. No tracheal deviation present. No JVD Cardiovascular: Pacemaker site looks good in left upper chest.Normal rate, regular rhythm. No gallop. No friction rub. No murmur heard. Symmetric radial artery pulses Pulmonary/Chest: Effort normal. No stridor. No respiratory distress. No wheezes. No rales. No rhonchi . No tenderness. Abdominal: Soft. Bowel sounds normal. No distension. No mass. No tenderness. No rebound. No guarding. Musculoskeletal: RUE: Normal range of motion. No tenderness. No deformity LUE: Normal range of motion. No tenderness. No deformity RLE: Normal range of motion. No edema. No tenderness. No deformity LLE: Normal range of motion. No edema. No tenderness. No deformity Neurological: Alert and oriented to person, place, and time. Normal strength. CN II-VII intact. No sensory deficit. GCS eye subscore is 4. GCS verbal subscore is 5. GCS motor subscore is 6. Normal coordination Skin: Skin is warm and dry. No rash noted. No pallor. Normal capillary refill. Psychiatric: Normal mood. Normal affect. Const: Vital Signs, click to edit/add: Vital Signs - 24 hr 02/22/25 12:42 02/22/25 14:34 02/22/25 14:35 Temperature 97.6 F Pulse Rate 72 66 Pulse Rate [Pulse Oximeter] 81 Respiratory Rate 20 12 12 Blood Pressure 147/69 H Blood Pressure [Ri ght Upper Arm] 152/83 H Pulse Oximetry 98 99 Oxygen Delivery Me thod Room Air 02/22/25 14:45 02/22/25 15:00 02/22/25 15:02 Temperature Pulse Rate 61 61 63 Pulse Rate [Pulse Oximeter] Respiratory Rate 12 Blood Pressure 127/62 Blood Pressure [Ri ght Upper Arm] Pulse Oximetry 98 98 97 Oxygen Delivery Me thod Course Vital Signs Vital signs: Initial Vital Signs Temperature 97.6 F 02/22/25 12:42 Temperature Source Temporal Artery Scan 02/22/25 12:42 Pulse Rate 81 02/22/25 12:42 Pulse Rhythm Regular 02/22/25 12:42 Respiratory Rate 20 02/22/25 12:42 Blood Pressure 152/83 H 02/22/25 12:42 Blood Pressure Mean 106 H 02/22/25 12:42 Blood Pressure Position Sitting 02/22/25 12:42 Oxygen Delivery Method Room Air 02/22/25 12:42 Vital Signs Temperature 97.6 F 02/22/25 12:42 Pulse Rate 81 02/22/25 12:42 Respiratory Rate 20 02/22/25 12:42 Blood Pressure 152/83 H 02/22/25 12:42 Oxygen Delivery Method Room Air 02/22/25 12:42 Temperature 97.6 F 02/22/25 12:42 Pulse Rate 63 02/22/25 15:02 Respiratory Rate 12 02/22/25 14:45 Blood Pressure 127/62 02/22/25 15:02 Pulse Oximetry 97 02/22/25 15:02 Oxygen Delivery Method Room Air 02/22/25 12:42 Medical Decision Making MDM Narrative Medical decision making narrative: This patient presents for evaluation of palpitations. Initial ECG shows paced ventricular hythm . no dysrhythmogenic abnormality such as WPW, prolonged QT, Brugada syndrome, and no ischemia. desk monitor while the patient here in the ER showed no dysrhythmia or ectopy. A broad differential diagnosis was considered including SVT, Atrial fibrillation, ventricular arrhythmia, thyroid disease, acute electrolyte abnormality, drugs/medications, caffeine intake or other stimulants, medication side effect, anemia, heart disease, PE, among others. The workup and exam here in ED shows not specific cause of the patient's palpitations, and no risks factors to warrant admission. with orders of her liver of discussed with cardiology, by phone from [facility]. They feel this is probably a brief run of AFib likely because of stopping the sotalol. They would advise that the patient is worried we could have her increase her diltiazem from 120 mg daily up to 180 mg daily. Cardiology will also have the EP clinic reach out to the patient by phone tomorrow to arrange a close outpatient follow-up. Additional consideration needs to be given to other antiarrhythmics to suppress the paroxysmal AFib. I discussed this plan of care with the patient and her . At this point they would prefer to stay on the same dose of diltiazem and follow up outpatient with her EP, rather than make any medication changes here. They question whether not it was [place] to stop the sotalol because they were not convinced it was what was causing her weakness. The patient almost prefers to go back on sotalol. I advised her to discuss this with her director of laboratory operations. Lab Data Labs: Lab Results 02/22/25 02/22/25 Range/Units 13:55 14:50 WBC 3.75 L (4.50-11.00) K/uL RBC 5.25 H (4.00-5.20) m/uL Hgb 13.4 (12.0-16.0) gm/dL Hct 42.7 (33.0-51.0) % MCV 81 (80-100) fL MCH 26 (26-34) pg MCHC 31 L (32-36) gm/dL RDW Coeff of Lee Ann 16.0 H (11.5-15.5) % Plt Count 172 (140-440) K/uL Neut % (Auto) 58.1 (42.0-72.0) % Lymph % (Auto) 28.5 (20-44) % Spencer % (Auto) 10.4 (0.0-11.0) % Eos % (Auto) 1.9 (0.0-7.0) % Baso % (Auto) 1.1 (0.0-3.0) % Neut # (Auto) 2.20 (1.7-7.0) K/uL Lymph # (Auto) 1.10 (0.90-2.90) K/uL Spencer # (Auto) 0.40 (0.00-0.90) K/UL Eos # (Auto) 0.10 (0.00-0.50) K/uL Baso # (Auto) 0.00 (0.00-0.30) K/uL Abs Immat Gran (auto) 0.00 (0.00-0.30) K/uL Imm/Tot Granulo (auto) 0.0 % Sodium 135 (135-149) mmol/L Potassium 4.1 (3.6-5.1) mmol/L Chloride 99 (96-114) mmol/L Carbon Dioxide 27 (20-32) mmol/L Anion Gap 9 (7-15) mEq/L BUN 13 (7-30) mg/dL Creatinine 0.7 (0.5-1.5) mg/dL Estimated Creat Clear 38.50 Estimated GFR 85 ml/min Glucose 103 (60-115) mg/dL Calcium 8.5 (8.4-10.6) mg/dL Magnesium 1.9 (1.5-2.6) mg/dL POC Troponin I High Sensi 9.8 (2.9-13.0) pg/mL ECG Data Attestation: I personally reviewed and interpreted this ECG as follows: Interpretation: Atrial paced rhythm with prolonged AV conduction rate 79 IA interval 344 right bundle branch block. Normal QRS axis. Left anterior fascicular block. No ST segment elevation or fracture. T-wave inversions V1 -V3 can discordant from QRS QT 420, QTC 481 Discharge Plan Discharge Clinical Impression: Palpitations Patient Disposition: Home, Self-Care Condition: Stable Instructions: Heart Palpitations (DC) Additional Instructions: As we discussed, we suspect that your palpitations were probably a brief run of atrial fibrillation or SVT this morning. Your laboratory workup looks reassuring today. I have discussed this with her director of laboratory operations. They recommend that for now you continue on the diltiazem. Your director of laboratory operations's office will call you in 1-2 days to check in. If you are still having symptoms you may have to switch back to sotalol or another Antiarrhythmic. as we discussed, please come back to the ER right away if you have any concerns, or more episodes of palpitations that last longer, or if you have worsening symptoms that lead to fainting, chest pain, trouble breathing. Prescriptions: No Action omega-3 fatty acids 1,000 mg capsule 2,000 mg PO BID sotalol 80 mg tablet 80 mg PO BID amlodipine 2.5 mg tablet 2.5 mg PO QDAY Eliquis 5 mg tablet 5 mg PO BID diltiazem HCl 120 mg capsule,extended release 24hr 120 mg PO DAILY losartan 50 mg tablet 50 mg PO DAILY trazodone 50 mg tablet Patient Comments: TAKE 1 TO 2 TABLETS BY MOUTH AT BEDTIME albuterol sulfate 90 mcg/actuation HFA aerosol inhaler INHALATION Patient Comments: INHALE 1-2 PUFFS EVERY 4 HOURS IF NEEDED FOR SHORTNESS OF BREATH 1ST CHOICE OR WHEEZING 1ST CHOICE. atorvastatin 40 mg tablet 40 mg PO QDAY Qty: 30 0RF omeprazole 20 mg capsule,delayed release(DR/EC) 20 mg PO QAM Qty: 30 0RF Follow Up/Referrals: ISM LEHMAN DO [Primary Care Provider, Family Practice] Stand Alone [facility] Instructions
[2025-02-22 14:34] VITALS: BP 147/69; PULSE 72; RESP 12; O2SAT 98
[2025-02-22 14:35] VITALS: PULSE 66; RESP 12; O2SAT 99
[2025-02-22 14:45] VITALS: PULSE 61; RESP 12; O2SAT 98
[2025-02-22 14:58] LABS: Hematocrit* 42.7 % (33.0-51.0); Hemoglobin* 13.4 gm/dL (12.0-16.0); Immature Granulocytes Abs Auto 0.00 K/uL (0.00-0.30); Immature Granulocytes Pct Auto 0.0 %; Mean Corpuscular HGB Conc 31 gm/dL (32-36); Mean Corpuscular Hemoglobin 26 pg (26-34); Mean Corpuscular Volume 81 fL (80-100); RDW Coefficient of Variation % 16.0 % (11.5-15.5); Red Blood Count* 5.25 m/uL (4.00-5.20); White Blood Count* 3.75 K/uL (4.50-11.00)
[2025-02-22 15:00] VITALS: PULSE 61; O2SAT 98
[2025-02-22 15:02] VITALS: BP 127/62; PULSE 63; O2SAT 97
[2025-02-22 15:14] LABS: Lymphocytes Absolute Auto 1.10 K/uL (0.90-2.90); Slide Review Reflex No
[2025-02-22 15:19] LABS: Chloride* 99 mmol/L (96-114); Potassium* 4.1 mmol/L (3.6-5.1); Sodium* 135 mmol/L (135-149)
[2025-02-22 15:22] LABS: Anion Gap 9 mEq/L (7-15); Blood Urea Nitrogen* 13 mg/dL (7-30); Calcium* 8.5 mg/dL (8.4-10.6); Carbon Dioxide* 27 mmol/L (20-32); Creatinine* 0.7 mg/dL (0.5-1.5); Est. Creatinine Clearance* 38.50; Estimated Glomerular Filt Rate 85 ml/min; Glucose* 103 mg/dL (60-115)
== END 2025-02-22 16:30 | disposition home or self-care (01) ==
PROVIDERS: Emergency Provider Emergency Medicine; PCP Student in an Organized Health Care Education/Training Program
DX: R00.2 Palpitations (principal)
CPT/HCPCS: 36415; 80048; 83735; 84484; 85025; 93005; 99283; 99284